=== PATIENT | male | born 1955 | race Caucasian/White ===

== ENCOUNTER → 2017-09-27 | Outpatient (CLI) | payer BC ==
[~2017-09-27] MED LIST: CIPRO 500MG TA500 MG PO; COLACE 100100 MG/CAP PO; LEVSIN0.125 M1 PO; LIPITOR20 MG; MULTIPLE VITAMI1 CAP PO; NORCO 325 MG-51 TAB PO; PERCOCET 325 MG1 TA2 PO; VITAMIN C500 MG PO
== END ==
LOC: COL.RAD 13:22
DX: R05 Cough (principal)